=== PATIENT | female | born 1995 | race Caucasian/White ===

== ENCOUNTER 2024-01-06 11:10 | Emergency (ER) | payer OTHER ==
[~2024-01-06] VITALS: Ht 172.7 cm; Wt 61.8 kg
[2024-01-06 11:16] VITALS: TEMP 98.2
[2024-01-06] MEDS ORDERED: SEPTRA DS 8001 TAB PO (12:47)
[2024-01-06 12:55] VITALS: BP 108/72; PULSE 68
[2024-01-06] MEDS ORDERED: BACTRIM DS 8001 TAB PO (13:30)
== END 2024-01-06 13:10 | disposition home or self-care (01) ==
LOC: COL.ER 11:10
DX: N75.8 Other diseases of Bartholin's gland (principal)